=== PATIENT | female | born 1950 | race Caucasian/White ===

== ENCOUNTER → 2017-07-11 | Outpatient (CLI) | payer MEDICARE ==
[~2017-07-11] MED LIST: CARAFATE1 G1 PO; CIPRO250 MG PO; COZAAR50 M1 PO; HUMALOG100 U/ML SC; LANTUS100 U/ML SC; LIPITOR80 MG PO; NEURONTIN100 MG PO; NORVASC5 MG PO; PRILOSEC40 M1 PO; ULTRAM50 MG PO; ZANTAC 150150 MG PO
== END | disposition home or self-care (01) ==
LOC: US 06:22
DX: K76.0 Fatty (change of) liver, not elsewhere classified (principal)

== ENCOUNTER → 2017-10-09 | Outpatient (CLI) | payer MEDICARE | END | disposition home or self-care (01) | LOC: NM 09-15 07:00 | DX: R10.11 Right upper quadrant pain (principal); I10 Essential (primary) hypertension; E11.9 Type 2 diabetes mellitus without complications ==

== ENCOUNTER → 2018-03-29 | Outpatient (CLI) | payer MEDICARE ==
[~2018-03-29] MED LIST changes: +BASAG SOL SC; +LEVOFLOXACIN500 MG PO; +LIPITOR40 MG PO; +METFORMIN ER500 MG PO; +MUCINEX ER600 MG PO; +PREDNISONE10 MG PO; +PREDNISONE20 M1 PO; +TRULICITY1.5 MG/0.5 SC
== END | disposition home or self-care (01) ==
LOC: CT 13:57
DX: J40 Bronchitis, not specified as acute or chronic (principal); R91.1 Solitary pulmonary nodule; R06.02 Shortness of breath; Z90.710 Acquired absence of both cervix and uterus; Z90.89 Acquired absence of other organs

== ENCOUNTER 2018-04-04 19:27 | Inpatient (IN) | payer MEDICARE ==
[~2018-04-04] VITALS: Ht 152.4 cm; Wt 70.5 kg
--- NOTE | ~2018-04-04 | CON ---
[place], [place] REPORT OF CONSULTATION NAME: JIL CALIX [facility] #: [id number] UNIT #: [id number] ROOM: 504 DOCTOR: VERONICA MARTINO MD BIRTHDATE: [birth year] DOS: 04/05/2018 CONSULTATION REQUESTED BY: Hospitalist service. REASON FOR CONSULTATION: For assessment of the symptoms of shortness of breath and cough. HISTORY OF PRESENT ILLNESS: This is a 67-year-old white female patient who has been noted with ongoing symptom for coughing about couple of months. The symptoms have been noted progressive severe inability to cough. The patient has been treated as an outpatient about a month ago with the antibiotic and prednisone. The patient's symptoms had not been noted improving. She came into the Emergency Room where she has been assessed and currently admitted to the hospital for further medical management. She denies symptoms of chest pain with that. Wheezing has been noted intermittently. Tightness in the chest was reported. REVIEW OF SYSTEMS: CONSTITUTIONAL SYMPTOMS: Reported symptoms of fatigue and tiredness. Denies symptoms of fever or chills. EYES: Denies burning, redness, or tenderness. EARS, NOSE, THROAT SYMPTOMS: Denies sore throat, hoarseness, otalgia, postnasal drainage or epistaxis. CARDIOVASCULAR: Denies anginal pain, edema, pain of the lower extremities. GASTROINTESTINAL: Denies dysphagia, nausea, vomiting, diarrhea, abdominal pain, hematemesis, melena, or hematochezia. SKIN: Denies abnormal lesions or rashes. CENTRAL NERVOUS SYSTEM: No dizziness, headache, diplopia, syncopal episodes. Remaining systems were reviewed with the patient, they were noted all negative. PAST MEDICAL HISTORY: The patient was known with: 1. History of type 2 diabetes mellitus. 2. Essential hypertension. 3. Gastroesophageal reflux disease. 4. Moderate obesity. 5. Hyperlipidemia. SOCIAL HISTORY: The patient lives at home. Denies history of alcohol use, illicit drug use. Tobacco use was noted from the age of 20 at a younger age, smoked about a pack of cigarettes per day, discontinued 12 years ago. Denies alcohol use or illicit drugs. FAMILY HISTORY: The patient's father at 67 with the complication of myocardial infarction. Mother at age 70 due to complication of colon cancer. HOME MEDICATIONS: Listed as Norvasc, Lipitor, Cozaar, Prilosec, recent prescription of prednisone completion, Zantac, and Carafate. [place], [place] REPORT OF CONSULTATION NAME: JIL CALIX [facility] #: [id number] UNIT #: [id number] ROOM: [facility] DOCTOR: RAYRAY THOMAS MD,VERONICA BIRTHDATE: [birth year] DRUG ALLERGIES: REPORTED ALLERGY TO PENICILLIN AND ZITHROMAX. MEDICATIONS: Medications which has been used for this at the present time is Solu-Medrol 40 mg b.i.d., famotidine, Lipitor, Norvasc, Mucinex, Lovenox, omeprazole, Carafate, Levaquin, and other p.r.n. medications as well. PHYSICAL EXAMINATION: GENERAL: This is a 67-year-old white female who has been currently noted sitting on the bed without any acute distress this morning of assessment. Height of 5 feet, weight of 155 pounds, BMI 30. VITAL SIGNS: Normal temperature, respiratory rate ranging between 18-20, heart rate 72-104, blood pressure 153/73 to 150/60. The pulse oxygen saturation of the patient recorded as 95% saturation on 3 liters cannula. HEENT: Head was atraumatic. Eyes nonicterus. NECK: Supple. CARDIOVASCULAR: S1, S2 audible. LUNGS: The patient was noted moderate. Decreased breath sounds with expiratory wheezing. No crackles. ABDOMEN: Soft, nontender and obese. EXTREMITIES: No edema. MUSCULOSKELETAL: Without any acute deformities. CENTRAL NERVOUS SYSTEM: The patient's cranial nerves 2-12 intact. MUSCULOSKELETAL: Noted without any gross deformities. VISIBLE SKIN: No lesions or rashes. LABORATORY DATA: The CBC that was done on this admission yesterday, WBC count was noted as 17.4, hemoglobin 11.4, and platelet count 494,000. Lactic acid yesterday was 1.8. The PT/INR was noted as 1.0 yesterday. CMP on admission, BUN 30, creatinine 1.42, glucose 332. CO2 of 20. PT/PTT repeated again this morning normal. CBC this morning, WBC 16.0, platelet count 483,000. CMP this morning, glucose 179, BUN 22, creatinine 1.06. Phosphorus mildly decreased at 2.4. Chest x-ray that was done yesterday PACS images were reviewed and it shows mild pleural thickening on the left side versus pleural fluid was suspected. CT scan of the chest was completed as an outpatient on the of this month was reviewed shows changes of mild centrilobular emphysema was noted. There was no pleural fluid noted on the CT scan of the chest. A 6-mm nodule was noted in the left lower lobe which is not calcified. There was no gross mediastinal lymph node enlargement noted with the lack of the IV contrast does limit the exact assessment. IMPRESSION: 1. The patient noted leukocytosis with ongoing acute exacerbation of chronic obstructive pulmonary disease is likely a reason. The patient has been treated with antibiotics and prednisone for the past 2 months as an outpatient and also seen in the Emergency Room, but failed to respond to treatment, persistent symptoms of coughing, wheezing and shortness of breath. Possibility of resistant infection to be excluded for this patient because of multiple use of antibiotics recently and also mucous impaction resulting in the current ongoing symptoms, nonresolving. 2. A 6-mm nodule was noted at this time in the left lobe at this time with [place], [place] REPORT OF CONSULTATION NAME: JIL CALIX UNIT #: [id number] ROOM: [facility] DOCTOR: VERONICA MARTINO MD BIRTHDATE: [birth year] significance unknown. Assess the followup CT scan of the chest between 3-6 months for further monitoring. 3. The patient with moderate obesity. 4. Steroid-induced hyperglycemia. PLAN OF MANAGEMENT: Bronchoscopy was planned to be done tomorrow morning. Continue current antibiotics, bronchodilators. Monitor leukocytosis. CT scan of the chest between 3-6 months, monitoring of the left lung pulmonary nodule. Continue abstinence of tobacco use. Collect the sputum for Gram stain and culture if the patient is able to expectorate, but she does not have any sputum expectoration, so the sputum culture could not be sent. Additional treatment changes will be made for the patient based on progression of the illness. VERONICA SEO MD CM:CONSTR:REPORT OF CONSULTATION 1136 04/16/18 1047 interface
--- NOTE | ~2018-04-04 | EKG ---
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
--- NOTE | ~2018-04-04 | PR ---
[place], [place] PROGRESS NOTE NAME: JIL CALIX [facility] #: [id number] UNIT #: [id number] ROOM: 504 DOCTOR: RAYRAY THOMAS MD,VERONICA BIRTHDATE: [birth year] DOS: 04/07/2018 SUBJECTIVE: She has been noted comfortable. Bronchoscopy done yesterday and after that she has been noted with marked improvement and reduction in respiratory symptoms including cough, which was noted previously, nonresolving wheezing has improved significantly. Shortness of breath decreased. OBJECTIVE: VITAL SIGNS: Normal temperature, respiratory rate 20, heart rate 78, blood pressure 153/60. The pulse oxygen saturation on room air 100% saturation. HEENT: Examination shows head was atraumatic. Eyes nonicterus. NECK: Supple. CARDIOVASCULAR: S1, S2 audible. LUNGS: Noted occasional wheezing. There were no crackles. ABDOMEN: Soft, nontender. Bowel sounds present. EXTREMITIES: The patient noted without any acute edema. IMPRESSION: The patient who has marked improvement noted in acute exacerbation of bronchial asthma, reduction of the respiratory symptom. Culture of the bronchial washings showed no bacterial growths. PLAN OF TREATMENT: The patient could be discharged home on oral antibiotics and tapering prednisone. Outpatient followup to be scheduled post-discharge by the patient. VERONICA SEO MD CM:PNTRANS [id number] VERONICA THOMAS MD 04/07/181935 interface
--- NOTE | ~2018-04-04 | PROC NOTE ---
[place], [place] PROCEDURE NOTE [facility] [id number] UN[facility] #: [id number] ROOM: 504 DOCTOR: RAYRAY THOMAS MD,VERONICA BIRTHDATE: [birth year] DOS: 04/06/2018 PREOPERATIVE DIAGNOSIS: Persistent severe nonresolving cough with wheezing. POSTOPERATIVE DIAGNOSES: Removal of moderate to large amount of mucus plugs, endobronchial tree bilaterally. Evidence of tracheobronchitis as well. There were no endobronchial obstructive lesions. PROCEDURE DESCRIPTION: Informed consent obtained for the patient. She was brought to the OR and placed in a supine position. Conscious sedation administered by the Anesthesia Department. After achieving proper sedation, airway introduced into the mouth. Bronchoscope advanced to the airway into laryngeal area. Epiglottis and vocal cords were seen. Vocal cords moving symmetrically with movements. Bronchoscope and vocal cord and tracheal lumen. Tracheal lumen shows moderate amount of thick mucus secretion with small purulent secretion suctioned out maddy level. Multiple plugs of the mucus were present in endobronchial tree bilaterally, which was cleared out with normal saline wash. No endobronchial obstructive lesion, or findings of tracheobronchitis were noted. Procedure was tolerated by the patient. Postoperative finding will be discussed with the patient once the patient recovered the effects of acute sedation. No immediate treatment changes will be needed. VERONICA SEO MD CM:PROCNOTE:PROCEDURE NOTE [id number] VERONICA THOMAS MD
--- NOTE | ~2018-04-04 | PR ---
[place], [place] PROGRESS NOTE NAME: JIL CALIX UNIT #: [id number] ROOM: 504 DOCTOR: VERONICA MARTINO MD BIRTHDATE: [birth year] DOS: 04/06/2018 SUBJECTIVE: The patient has been n.p.o. past night for bronchoscopy. He continued to have severe nonproductive cough with intermittent wheezing. Chest tightness reported, there was symptoms of chest pain. Denies symptoms of fever, chills, headache, diplopia, or postnasal drainage. Denies symptoms of abdominal pain, nausea, vomiting or edema of the lower extremities. Remaining systems were reviewed, they were noted all negative. OBJECTIVE: VITAL SIGNS: For the patient normal temperature, respiratory rate of 20, heart rate of 78, blood pressure 165/77-160/62. The pulse oxygen saturation was recorded as 96% on room air. HEENT: Examination shows head was atraumatic. Eyes nonicterus. NECK: Supple. CARDIOVASCULAR: S1, S2 is audible. LUNGS: The patient was noted with expiratory wheezing, no crackles. ABDOMEN: Soft, nontender, bowel sounds present. EXTREMITIES: No acute change. VISIBLE SKIN: No lesions or rashes. CENTRAL NERVOUS SYSTEM: Intact. MUSCULOSKELETAL: Without any acute deformities. LABORATORY DATA: The blood culture from 03/18/2018 for the patient noted no bacterial growth. IMPRESSION: 1. The patient with ongoing severe cough, which has been noted chronic with recent worsening as well. 2. Acute exacerbation of bronchial asthma. 3. Chronic moderate obesity. PLAN OF MANAGEMENT: Proceed with the bronchoscopy as planned. No change in the treatment; otherwise will be necessary. Solitary nodule, which was noted on the CT scan of the chest. The patient required further assessment as an outpatient. Proceed with the bronchoscopy. Any modification treatment can be done after the bronchoscopy. [place], [place] PROGRESS NOTE NAME: JIL CALIX UNIT #: [id number] ROOM: 504 DOCTOR: VERONICA MARTINO MD BIRTHDATE: [birth year] VERONICA SEO MD CM:PNTRANS [id number] VERONICA HTOMAS MD 04/16/18 1048 interface
[~2018-04-04 19:27] MED LIST changes: -BASAG SOL SC; -LEVOFLOXACIN500 MG PO; -LIPITOR40 MG PO; -METFORMIN ER500 MG PO; -MUCINEX ER600 MG PO; -PREDNISONE20 M1 PO; -TRULICITY1.5 MG/0.5 SC
[2018-04-04 19:29] VITALS: BP 153/73
[2018-04-04] MEDS ORDERED: TRULICITY1.5 MG/0.5 SC (19:41)
[2018-04-04 19:59] LABS: BASO % 0.2 % (0.0-1.0); EOS # 0.1 10*3/uL (0.0-0.4); EOS % 0.6 % (1.0-4.0); HEMOGLOBIN 11.4 g/dl (12.0-16.0); LYMPH # 3.1 10*3/uL (1.3-4.4); LYMPH % 17.9 % (27.0-41.0); MEAN CELL VOLUME 82.2 fl (81.0-99.0); MEAN CORPUSCULAR HGB CONC 31.7 g/dl (33.0-37.0); MEAN PLATELET VOLUME 10.7 fl (9.6-12.3); MONO # 1.2 10*3/uL (0.1-1.0); MONO % 7.1 % (3.0-9.0); NEUT # 12.7 10*3/uL (2.3-7.9); PLATELET COUNT AUTOMATED 494 10*3/uL (130-400); RED BLOOD COUNT 4.38 10*6/uL (4.10-5.10); RED CELL DISTRI WIDTH 16.2 % (0-14.5); WHITE BLOOD COUNT 17.4 10*3/uL (4.8-10.8)
[2018-04-04 20:19] LABS: ALBUMIN 2.8 gm/dl (3.1-4.5); ALKALINE PHOSPHATASE 106 U/L (45-117); BUN 30 mg/dl (7-24); CHLORIDE 108 mmol/L (98-107); CREATININE 1.42 mg/dL (0.55-1.02); POTASSIUM 4.6 mmol/L (3.5-5.1); SGOT/AST 16 IU/L (3-35); SGPT/ALT 22 U/L (12-78); SODIUM 138 mmol/L (136-145); TOTAL PROTEIN 7.9 gm/dL (6.4-8.2)
[2018-04-04 20:21] LABS: TROPONIN I < 0.015 ng/ml (<0.045)
[2018-04-04 22:39] VITALS: BP 143/64
[2018-04-05 00:40] VITALS: BP 176/67
--- NOTE | 2018-04-05 00:40 | NUR ---
A 67, admitted to , under the services of MARIO Frazier DO with a diagnosis of SEPSIS, PNEUMONITIS. Chief complaint is HAD BRONCHITIS 1 MONTH AGO IMPROVES WITH PREDNISONE AND THEN GETS SICK AGAIN WHEN DONE WITH STERIOD. C/O SOB NON PRODUCTIVE COUGH. Patient arrived via stretcher from ER. Monitor applied. Initial assessment completed. Vital signs taken and recorded. MARIO FRAZIER DO notified of admission to the unit. Orders received. See assessment for past medical history, medications and allergies. Patient and/or family oriented to unit. [facility]. visitation policy reviewed. Clothing/patient valuable form completed. CHEYANNE WORRELL
[2018-04-05] MEDS ORDERED: METFORMIN ER500 MG PO (01:15)
[2018-04-05] MEDS ORDERED: LIPITOR40 MG PO (01:18)
[2018-04-05] MEDS ORDERED: PREDNISONE20 M1 PO (01:20)
[2018-04-05] MEDS ORDERED: BASAG SOL SC (01:22)
--- NOTE | 2018-04-05 03:39 | NUR ---
CALLED DR. AVERY AND NOTIFIED HIM OF HOME MEDICATIONS BEING RECONCILLED AND THAT NO SOLUMEDROL WAS GIVEN IN ER AFTER VERIFY THIS WITH THE GRAIN WEIGHER. OK TO GIVEN SOLUMEDROL NOW PER DR. AVERY.
--- NOTE | 2018-04-05 06:57 | NUR ---
DR. SEO HERE AND SPOKE WITH PATIENT AND WANTS TO HAVE PT. SCHEDULED FOR BRONCHOSCOPY FOR TOMORROW AM.
[2018-04-05 07:58] LABS: HEMATOCRIT 39.7 % (37.0-47.0); HEMOGLOBIN 12.4 g/dl (12.0-16.0); MEAN CELL VOLUME 82.5 fl (81.0-99.0); MEAN CORPUSCULAR HGB 25.8 pg (27.0-31.0); MEAN CORPUSCULAR HGB CONC 31.2 g/dl (33.0-37.0); MEAN PLATELET VOLUME 10.9 fl (9.6-12.3); PLATELET COUNT AUTOMATED 483 10*3/uL (130-400); RED BLOOD COUNT 4.81 10*6/uL (4.10-5.10); RED CELL DISTRI WIDTH 16.3 % (0-14.5)
[2018-04-05 08:00] VITALS: BP 150/60
[2018-04-05 08:09] LABS: ACT PARTIAL THROMBO TIME 21.7 SECONDS (20.8-31.5)
[2018-04-05 08:16] LABS: TOTAL CELLS COUNTED 100 #CELLS
[2018-04-05 08:17] LABS: PLATELET SUFFICIENCY HIGH (NORMAL)
[2018-04-05 08:20] LABS: ALBUMIN 2.9 gm/dl (3.1-4.5); BUN 22 mg/dl (7-24); CHLORIDE 108 mmol/L (98-107); CHOLESTEROL 208 mg/dL (<200); CREATININE 1.06 mg/dL (0.55-1.02); PHOSPHOROUS 2.4 mg/dL (2.5-4.9); SGOT/AST 6 IU/L (3-35); SGPT/ALT 19 U/L (12-78); SODIUM 140 mmol/L (136-145); TRIGLYCERIDES 138 mg/dl (<150); VLDL CHOLESTEROL 28 mg/dL (6-40)
[2018-04-05 08:28] LABS: ALKALINE PHOSPHATASE 104 U/L (45-117); FREE T4 0.86 ng/dl (0.76-1.46); HDL CHOLESTEROL 53 mg/dl (40-60); LDL CHOLESTEROL 127 mg/dL (9-159); TOTAL PROTEIN 8.3 gm/dL (6.4-8.2)
[2018-04-05 08:34] LABS: POTASSIUM 3.6 mmol/L (3.5-5.1)
--- NOTE | 2018-04-05 08:41 | NUR ---
PT RESTING IN BED. NO DISTRESS NOTED./ SEE SHIFT ASSESSMENT. WILL MONITOR
--- NOTE | 2018-04-05 09:00 | NUR ---
Correspondence Representative in to talk to patient. Patient states lives at home with family. There are few steps in the home. Physician: piter Pharmacy: [facility] Home health services: none Patient's level of ADLs: INDEPENDENT Patient has working utilities: all working DME: none Follow-up physician's appointment after d/c: will be made by hospitalist nurse director upon discharge Does patient want to access PORTAL?: no Discharge plan disucussed with patient, patient lives at home, is independent in adls and ambulation, works, drives, patient states she will be going back home when able and denies any home needs. JORGE L MILAN
[2018-04-05 09:20] LABS: VITAMIN D, 25-HYDROXY 13.1 ng/mL (30-100)
[2018-04-05 12:00] VITALS: BP 145/50
[2018-04-05 16:00] VITALS: BP 129/66
[2018-04-05 20:00] VITALS: BP 129/45
--- NOTE | 2018-04-05 20:28 | NUR ---
24 HR chart check completed.
--- NOTE | 2018-04-05 21:00 | NUR ---
AWAKE, RESTING IN BED WITH NO ACUTE DISTRESS NOTED. RESPIRATIONS EASY. LUNGS DIMINISHED WITH WHEEZES. PULSE OX 99% RA. CLAIMS NON-PROD COUGH; AWARE OF NEED FOR SPUTUM SPECIMEN, CUP PRESENT AT BEDSIDE. IV FLUIDS INFUSING PER ORDER. CALL LIGHT WITHIN REACH. NO VOICED COMPLAINTS.
[2018-04-06] VITALS (9 sets, daily range): BP systolic 136–195; BP diastolic 43–134
--- NOTE | 2018-04-06 | NUR ---
RESTING IN BED. NO ACUTE DISTRESS NOTED. RESPIRATIONS EASY. VSS. NPO STATUS DISCUSSED FOR BRONCH IN AM, PATIENT VOICES UNDERSTANDING. IV FLUIDS INFUSING PER ORDER. CALL LIGHT WITHIN REACH. NO VOICED COMPLAINTS
--- NOTE | 2018-04-06 06:00 | NUR ---
SLEPT THROUGHOUT NIGHT WITH NO DISTRESS NOTED. RESPIRATIONS EASY. NPO STATUS MAINTAINED FOR BRONCH THIS AM. IV FLUIDS MAINTAINED. CALL LIGHT WITHIN REACH. NO VOICED COMPLAINTS THIS SHIFT
--- NOTE | 2018-04-06 08:17 | NUR ---
PT RESTING IN BED. NO DISTRESS NOTED. WILL MONITOR NO VOICED C/O
--- NOTE | 2018-04-06 09:00 | NUR ---
case management attempted to visit with patient. patient was out of the room for a procedure, will see at a later time regarding any discharge need
--- NOTE | 2018-04-06 19:45 | NUR ---
PT RESTING IN BED WITH HOB ELEVATED. RESP-EASY AND REGULAR. IVF INFUSING WITH NO PROBLEM. NO C/O AT THIS TIME. CALL LIGHT IN REACH.
--- NOTE | 2018-04-06 21:15 | NUR ---
TOLERATED ROUTINE MED WITH NO PROBLEM. BSG-421, SEE EMAR. CALL LIGHT IN REACH.
[2018-04-07] VITALS: BP 160/51
--- NOTE | 2018-04-07 00:20 | NUR ---
AMBULATORY TO BATHROOM AND BACK TO BED. C/O HEARTBURN, REQUESTING CARAFATE, STATES THIS HELPS. MEDICATED WITH CARAFATE PER PRN ORDER, SEE EMAR. CALL LIGHT IN REACH. SEE SHIFT ASSESSMENT.
--- NOTE | 2018-04-07 01:15 | NUR ---
RESTING IN BED WITH EYES CLOSED. MEDICATION SEEMS TO BE EFFECTIVE. CALL LIGHT IN REACH.
--- NOTE | 2018-04-07 04:00 | NUR ---
RESTING IN BED ON RIGHT SIDE. RESP-EASY AND REGULAR. CALL LIGHT IN REACH.
--- NOTE | 2018-04-07 05:50 | NUR ---
TOLERATED ROUTINE MED WITH NO PROBLEM. BSG-202, SEE EMAR. IVF INFUSING WITH NO PROBLEM. CALL LIGHT IN REACH.
[2018-04-07 08:00] VITALS: BP 153/60
[2018-04-07] MEDS ORDERED: LEVOFLOXACIN500 MG PO (10:08)
[2018-04-07] MEDS ORDERED: MUCINEX ER600 MG PO (10:09)
[2018-04-07] MEDS ORDERED: PREDNISONE10 MG PO (10:09)
--- NOTE | 2018-04-07 12:02 | NUR ---
Discharge instructions reviewed with patient. Patient receptive and verbalizes understanding. Follow-up care TO BE arranged BY PATIENT. Written instructions given to patient. IV CATH REMOVED FROM [facility]. RAYSA NIEVES
[2018-04-07 14:06] LABS: ACID FAST SPEC PROCESSING Concentration (.)
[2018-04-19 13:09] LABS: ORGANISM ID, MOLD Final report (.); RESULT 1 Penicillium species (.)
[2018-05-03 18:05] LABS: ACID FAST CULTURE Positive (.); M GORDONAE Not Indicated (.); M KANSASII Not Indicated (.); M TUBERCULOSIS COMPLEX Negative (.)
[2018-05-07 09:44] LABS: M AVIUM COMPLEX Positive (.)
== END 2018-04-07 12:02 | disposition home or self-care (01) | DRG 871 ==
LOC: ED 19:27 → 5E 21:12 → EDHOLD 21:12 → 5E 23:55
PROVIDERS: Family Medicine; Internal Medicine Critical Care Medicine; Physician Assistant; ADMIT Internal Medicine
PROC: 0BC18ZZ Extirpation of Matter from Trachea, Via Natural or Artificial Opening Endoscopic (ICD-10-PCS; principal; 2018-04-06)
PROC: 0BC48ZZ Extirpation of Matter from Right Upper Lobe Bronchus, Via Natural or Artificial Opening Endoscopic (ICD-10-PCS; principal; 2018-04-06)
PROC: 0BC38ZZ Extirpation of Matter from Right Main Bronchus, Via Natural or Artificial Opening Endoscopic (ICD-10-PCS; principal; 2018-04-06)
PROC: 0BC78ZZ Extirpation of Matter from Left Main Bronchus, Via Natural or Artificial Opening Endoscopic (ICD-10-PCS; principal; 2018-04-06)
PROC: 0BC98ZZ Extirpation of Matter from Lingula Bronchus, Via Natural or Artificial Opening Endoscopic (ICD-10-PCS; principal; 2018-04-06)
PROC: 0BCB8ZZ Extirpation of Matter from Left Lower Lobe Bronchus, Via Natural or Artificial Opening Endoscopic (ICD-10-PCS; principal; 2018-04-06)
PROC: 0BC88ZZ Extirpation of Matter from Left Upper Lobe Bronchus, Via Natural or Artificial Opening Endoscopic (ICD-10-PCS; principal; 2018-04-06)
PROC: 0BC58ZZ Extirpation of Matter from Right Middle Lobe Bronchus, Via Natural or Artificial Opening Endoscopic (ICD-10-PCS; principal; 2018-04-06)
PROC: 0BC68ZZ Extirpation of Matter from Right Lower Lobe Bronchus, Via Natural or Artificial Opening Endoscopic (ICD-10-PCS; principal; 2018-04-06)
DX: A41.9 Sepsis, unspecified organism (principal); J18.9 Pneumonia, unspecified organism; N17.0 Acute kidney failure with tubular necrosis; E43 Unspecified severe protein-calorie malnutrition; J45.901 Unspecified asthma with (acute) exacerbation; J44.1 Chronic obstructive pulmonary disease with (acute) exacerbation; T17.590A Other foreign object in bronchus causing asphyxiation, initial encounter; J44.0 Chronic obstructive pulmonary disease with (acute) lower respiratory infection; E66.8 Other obesity; E78.5 Hyperlipidemia, unspecified; R65.20 Severe sepsis without septic shock; J20.9 Acute bronchitis, unspecified; D64.9 Anemia, unspecified; T38.0X5A Adverse effect of glucocorticoids and synthetic analogues, initial encounter; D47.3 Essential (hemorrhagic) thrombocythemia; E87.8 Other disorders of electrolyte and fluid balance, not elsewhere classified; E11.65 Type 2 diabetes mellitus with hyperglycemia; E83.41 Hypermagnesemia; X58.XXXA Exposure to other specified factors, initial encounter; I10 Essential (primary) hypertension; K21.9 Gastro-esophageal reflux disease without esophagitis; Z88.0 Allergy status to penicillin; Z88.1 Allergy status to other antibiotic agents; Z79.4 Long term (current) use of insulin; Z79.899 Other long term (current) drug therapy; Z90.710 Acquired absence of both cervix and uterus; Z98.51 Tubal ligation status; Z82.3 Family history of stroke; Z82.49 Family history of ischemic heart disease and other diseases of the circulatory system; Z80.0 Family history of malignant neoplasm of digestive organs; Z87.891 Personal history of nicotine dependence; Z79.84 Long term (current) use of oral hypoglycemic drugs; Y92.89 Other specified places as the place of occurrence of the external cause; Y93.89 Activity, other specified; Y99.8 Other external cause status; Z68.30 Body mass index [BMI] 30.0-30.9, adult

== ENCOUNTER → 2018-05-01 | Outpatient (CLI) | payer MEDICARE ==
[~2018-05-01] MED LIST changes: +BASAG SOL SC; +LEVOFLOXACIN500 MG PO; +LIPITOR40 MG PO; +METFORMIN ER500 MG PO; +MUCINEX ER600 MG PO; +PREDNISONE20 M1 PO; +TRULICITY1.5 MG/0.5 SC
[2018-05-01 14:33] LABS: BASO % 0.2 % (0.0-1.0); EOS # 0.2 10*3/uL (0.0-0.4); EOS % 1.8 % (1.0-4.0); HEMATOCRIT 32.4 % (37.0-47.0); HEMOGLOBIN 10.1 g/dl (12.0-16.0); LYMPH # 1.5 10*3/uL (1.3-4.4); MEAN CELL VOLUME 83.3 fl (81.0-99.0); MEAN CORPUSCULAR HGB CONC 31.2 g/dl (33.0-37.0); MEAN PLATELET VOLUME 10.2 fl (9.6-12.3); MONO # 0.6 10*3/uL (0.1-1.0); MONO % 5.5 % (3.0-9.0); NEUT # 8.8 10*3/uL (2.3-7.9); NEUT % 79.1 % (47.0-73.0); PLATELET COUNT AUTOMATED 276 10*3/uL (130-400); RED BLOOD COUNT 3.89 10*6/uL (4.10-5.10); RED CELL DISTRI WIDTH 17.2 % (0-14.5); WHITE BLOOD COUNT 11.2 10*3/uL (4.8-10.8)
== END | disposition home or self-care (01) ==
LOC: LAB 14:03
PROVIDERS: Internal Medicine Critical Care Medicine
DX: Z79.899 Other long term (current) drug therapy (principal)

== ENCOUNTER → 2018-05-14 | Outpatient (CLI) | payer MEDICARE ==
[2018-05-14 15:53] LABS: BASO # 0.1 10*3/uL (0.0-0.1); BASO % 0.3 % (0.0-1.0); EOS # 0.1 10*3/uL (0.0-0.4); EOS % 0.3 % (1.0-4.0); HEMATOCRIT 36.5 % (37.0-47.0); HEMOGLOBIN 11.2 g/dl (12.0-16.0); LYMPH # 2.4 10*3/uL (1.3-4.4); LYMPH % 13.2 % (27.0-41.0); MEAN CELL VOLUME 84.1 fl (81.0-99.0); MEAN CORPUSCULAR HGB 25.8 pg (27.0-31.0); MEAN CORPUSCULAR HGB CONC 30.7 g/dl (33.0-37.0); MEAN PLATELET VOLUME 10.4 fl (9.6-12.3); MONO # 0.9 10*3/uL (0.1-1.0); MONO % 5.2 % (3.0-9.0); NEUT # 14.4 10*3/uL (2.3-7.9); NEUT % 80.2 % (47.0-73.0); PLATELET COUNT AUTOMATED 384 10*3/uL (130-400); RED BLOOD COUNT 4.34 10*6/uL (4.10-5.10)
[2018-05-14 16:14] LABS: IRON 63 ug/dL (50-170); TOTAL IRON BINDING CAPACITY 276 ug/dl (250-450)
[2018-05-14 16:51] LABS: FERRITIN 16.1 ng/mL (10.0-291.0)
== END | disposition home or self-care (01) ==
LOC: LAB 15:24
PROVIDERS: Family Medicine
DX: D64.9 Anemia, unspecified (principal)

== ENCOUNTER 2018-12-29 15:48 | Emergency (ER) | payer MEDICARE, OTHER ==
[~2018-12-29] VITALS: Ht 152.4 cm; Wt 74.4 kg
--- NOTE | ~2018-12-29 | EKG ---
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
[2018-12-29 16:43] LABS: BASO % 0.2 % (0.0-1.0); EOS # 0.2 10*3/uL (0.0-0.4); HEMATOCRIT 35.1 % (37.0-47.0); HEMOGLOBIN 10.5 g/dl (12.0-16.0); LYMPH # 1.4 10*3/uL (1.3-4.4); LYMPH % 23.1 % (27.0-41.0); MEAN CELL VOLUME 85.6 fl (81.0-99.0); MEAN CORPUSCULAR HGB 25.6 pg (27.0-31.0); MEAN CORPUSCULAR HGB CONC 29.9 g/dl (33.0-37.0); MONO # 0.6 10*3/uL (0.1-1.0); MONO % 9.3 % (3.0-9.0); NEUT # 3.7 10*3/uL (2.3-7.9); NEUT % 63.1 % (47.0-73.0); PLATELET COUNT AUTOMATED 250 10*3/uL (130-400); RED CELL DISTRI WIDTH 16.2 % (0-14.5); WHITE BLOOD COUNT 5.9 10*3/uL (4.8-10.8)
[2018-12-29 16:51] LABS: ACT PARTIAL THROMBO TIME 26.3 SECONDS (20.0-32.1)
[2018-12-29 16:59] LABS: BILIRUBIN NEGATIVE (NEGATIVE); BLOOD NEGATIVE (NEGATIVE); CLARITY CLEAR (CLEAR); COLOR YELLOW (YELLOW); GLUCOSE NEGATIVE (NEGATIVE); KETONE NEGATIVE (NEGATIVE); LEUKO ESTERASE NEGATIVE (NEGATIVE); NITRITE NEGATIVE (NEGATIVE); SPECIFIC GRAVITY 1.025 (1.005-1.030); UROBILINOGEN 0.2 E.U./dl (0.2-1.0)
[2018-12-29 17:01] LABS: ALBUMIN 2.8 gm/dl (3.1-4.5); ALKALINE PHOSPHATASE 91 U/L (45-117); BUN 24 mg/dl (7-24); CHLORIDE 109 mmol/L (98-107); CREATININE 1.25 mg/dL (0.55-1.02); LIPASE 235 U/L (73-393); POTASSIUM 4.1 mmol/L (3.5-5.1); SGOT/AST 16 IU/L (3-35); SGPT/ALT 25 U/L (12-78); SODIUM 136 mmol/L (136-145); TOTAL PROTEIN 7.8 gm/dL (6.4-8.2); TROPONIN I < 0.015 ng/ml (<0.045)
[2018-12-29 17:06] LABS: BACTERIA 1+
== END 2018-12-29 20:48 | disposition home or self-care (01) ==
LOC: ED 15:48
PROVIDERS: Physician Assistant
DX: K52.9 Noninfective gastroenteritis and colitis, unspecified (principal); R09.1 Pleurisy; M25.511 Pain in right shoulder; R79.1 Abnormal coagulation profile; I10 Essential (primary) hypertension; E11.9 Type 2 diabetes mellitus without complications; Z88.0 Allergy status to penicillin; Z88.1 Allergy status to other antibiotic agents; Z79.899 Other long term (current) drug therapy; Z79.4 Long term (current) use of insulin; Z87.891 Personal history of nicotine dependence

== ENCOUNTER 2019-01-23 18:27 | Inpatient (IN) | payer MEDICARE, OTHER ==
[~2019-01-23] VITALS: Ht 152.4 cm; Wt 74.4 kg
[2019-01-23 18:30] VITALS: BP 158/77
[2019-01-23 19:12] LABS: BASO # 0.1 10*3/uL (0.0-0.1); BASO % 0.7 % (0.0-1.0); EOS # 0.2 10*3/uL (0.0-0.4); HEMATOCRIT 32.1 % (37.0-47.0); HEMOGLOBIN 9.9 g/dl (12.0-16.0); LYMPH # 1.3 10*3/uL (1.3-4.4); LYMPH % 8.7 % (27.0-41.0); MEAN CELL VOLUME 83.4 fl (81.0-99.0); MEAN CORPUSCULAR HGB 25.7 pg (27.0-31.0); MEAN CORPUSCULAR HGB CONC 30.8 g/dl (33.0-37.0); MEAN PLATELET VOLUME 10.9 fl (9.6-12.3); MONO # 0.9 10*3/uL (0.1-1.0); MONO % 5.6 % (3.0-9.0); NEUT # 12.8 10*3/uL (2.3-7.9); NEUT % 83.7 % (47.0-73.0); PLATELET COUNT AUTOMATED 296 10*3/uL (130-400); RED BLOOD COUNT 3.85 10*6/uL (4.10-5.10); RED CELL DISTRI WIDTH 15.4 % (0-14.5); WHITE BLOOD COUNT 15.3 10*3/uL (4.8-10.8)
[2019-01-23 19:23] LABS: ACT PARTIAL THROMBO TIME 24.8 SECONDS (20.0-32.1); INTERNATIONAL NORM RATIO 0.9 (2.0-3.5)
[2019-01-23 19:29] LABS: ALBUMIN 3.3 gm/dl (3.1-4.5); ALKALINE PHOSPHATASE 88 U/L (45-117); BUN 14 mg/dl (7-24); CHLORIDE 111 mmol/L (98-107); CREATININE 1.13 mg/dL (0.55-1.02); SGOT/AST 14 IU/L (3-35); SGPT/ALT 25 U/L (12-78); SODIUM 139 mmol/L (136-145); TOTAL PROTEIN 7.9 gm/dL (6.4-8.2)
[2019-01-23 19:39] LABS: TROPONIN I < 0.015 ng/ml (<0.045)
[2019-01-23 20:02] LABS: BILIRUBIN NEGATIVE (NEGATIVE); BLOOD NEGATIVE (NEGATIVE); CLARITY CLEAR (CLEAR); COLOR YELLOW (YELLOW); GLUCOSE NEGATIVE (NEGATIVE); KETONE NEGATIVE (NEGATIVE); LEUKO ESTERASE NEGATIVE (NEGATIVE); NITRITE NEGATIVE (NEGATIVE); UROBILINOGEN 0.2 E.U./dl (0.2-1.0)
[2019-01-23 20:14] LABS: BACTERIA 2+; RBC 0-2 rbc/hpf (0-2)
[2019-01-23 20:56] VITALS: BP 122/64
[2019-01-23 21:30] VITALS: BP 139/56
--- NOTE | 2019-01-23 21:30 | NUR ---
A 68, admitted to , under the services of JUAN Sanchez DO with a diagnosis of SEPSIS, PNEUMONITIS. Chief complaint is SHORTNESS OF BREATH,COUGH OFF/ON X 1 MONTH. Patient arrived via stretcher from ER. Monitor applied. Initial assessment completed. Vital signs taken and recorded. JUAN SANCHEZ DO notified of admission to the unit. Orders received. See assessment for past medical history, medications and allergies. Patient and/or family oriented to unit. [facility] visitation policy reviewed. Clothing/patient valuable form completed. ERICK HARDING
[2019-01-24] VITALS: BP 155/55
--- NOTE | 2019-01-24 06:24 | NUR ---
SPOKE WITH DR. FLORIAN REGARDING CONSULT ORDER.
[2019-01-24 06:45] LABS: HEMATOCRIT 28.3 % (37.0-47.0); HEMOGLOBIN 8.5 g/dl (12.0-16.0); MEAN CELL VOLUME 84.2 fl (81.0-99.0); MEAN CORPUSCULAR HGB 25.3 pg (27.0-31.0); MEAN PLATELET VOLUME 11.4 fl (9.6-12.3); PLATELET COUNT AUTOMATED 246 10*3/uL (130-400); RED BLOOD COUNT 3.36 10*6/uL (4.10-5.10); RED CELL DISTRI WIDTH 15.6 % (0-14.5); WHITE BLOOD COUNT 12.5 10*3/uL (4.8-10.8)
[2019-01-24 07:14] LABS: CREATININE 1.16 mg/dL (0.55-1.02); PHOSPHOROUS 1.6 mg/dL (2.5-4.9); POTASSIUM 3.9 mmol/L (3.5-5.1)
[2019-01-24 07:42] LABS: TOTAL CELLS COUNTED 100 #CELLS
[2019-01-24 07:43] LABS: PLATELET SUFFICIENCY NORMAL (NORMAL)
[2019-01-24 08:00] VITALS: BP 158/50
[2019-01-24 08:35] LABS: VITAMIN D, 25-HYDROXY 16.3 ng/mL (30-100)
[2019-01-24 08:36] LABS: FERRITIN 18.9 ng/mL (10.0-291.0)
[2019-01-24 12:00] VITALS: BP 144/46
--- NOTE | 2019-01-24 12:41 | NUR ---
[employer] in to talk to patient. Patient states lives at home with family. There are few steps in the home. Physician: paula Pharmacy: [facility] Home health services: none Patient's level of ADLs: INDEPENDENT Patient has working utilities: all working DME: none Follow-up physician's appointment after d/c: will be made by hospitalist nurse director upon discharge Does patient want to access PORTAL?: no Discharge plan discussed with patient, she lives at home with family, is independent in adls and ambulation, works, drives, she will return home when medically stable and denies any home needs. JORGE L MILAN
[2019-01-24 16:00] VITALS: BP 164/44
[2019-01-24 20:00] VITALS: BP 163/54
--- NOTE | 2019-01-24 22:22 | NUR ---
JOCELYN NOLASCO GIVEN AT PATIENT REQUEST FOR C/O COUGH. SEE EMAR. REINFORCED USE OF CALL LIGHT.
--- NOTE | 2019-01-24 22:30 | NUR ---
NOTIFIED OF BLOOD SUGAR RESULTS OF 272/252. COVERAGE PROVIDED PER S/S. SEE EMAR.
--- NOTE | 2019-01-24 22:30 | NUR ---
DR. TINOCO NOTIFIED OF BLOOD SUGARS OF 372/352. COVERAGE GIVEN PER S/S.
--- NOTE | 2019-01-24 23:46 | NUR ---
24 HR chart check completed.
[2019-01-25] VITALS (8 sets, daily range): BP systolic 118–146; BP diastolic 44–74
--- NOTE | 2019-01-25 06:15 | NUR ---
SPOKE WITH REGARDING INSUIN COVERAGE. BS 279. ONLY HALF COVERAGE PER S/S GIVEN D/T PATIENT BEING NPO FOR PROCEDURE. CALLED SURGERY SPOKE TO MEE MADE AWARE OF BLOOD SUGAR AND 5 UNITS COVERAGE GIVEN.
--- NOTE | 2019-01-25 09:00 | NUR ---
case management visits with patient, she states she will return home when medically stable, discussed with her VNA and she declines any home needs, she states she will return to work when medically stable
[2019-01-25 11:24] LABS: BF LYMPHOCYTES 1 %; BF MACROPHAGES 56 %; BF NEUTROPHILS 43 %
--- NOTE | 2019-01-25 14:00 | NUR ---
PT RESTING IN BED, NO DISTRESS NOTED. RESPIRATIONS EASY AND REGULAR, NO COMPLAINTS OF COUGH AT THIS TIME.
[2019-01-26] VITALS: BP 143/59
[2019-01-26] MEDS ORDERED: PREDNISONE10 MG PO (09:59)
[2019-01-26] MEDS ORDERED: LEVAQUIN500 M2 PO (09:59)
--- NOTE | 2019-01-26 11:45 | NUR ---
Discharge instructions reviewed with patient/family. Patient receptive and verbalizes understanding. Follow-up care arranged. Written instructions given to patient/family. IV and front desk monitor removed. PEGGY RICE
[2019-01-26 18:11] LABS: ACID FAST SPEC PROCESSING Concentration (.)
== END 2019-01-26 11:38 | disposition home or self-care (01) | DRG 871 ==
LOC: ED 18:27 → EDHOLD 19:53 → 5E 19:53
PROVIDERS: Internal Medicine; Internal Medicine Critical Care Medicine; Physician Assistant; ADMIT Internal Medicine
PROC: 0BC68ZZ Extirpation of Matter from Right Lower Lobe Bronchus, Via Natural or Artificial Opening Endoscopic (ICD-10-PCS; principal; 2019-01-23)
PROC: 0BC88ZZ Extirpation of Matter from Left Upper Lobe Bronchus, Via Natural or Artificial Opening Endoscopic (ICD-10-PCS; principal; 2019-01-23)
PROC: 0BC98ZZ Extirpation of Matter from Lingula Bronchus, Via Natural or Artificial Opening Endoscopic (ICD-10-PCS; principal; 2019-01-23)
PROC: 0BC18ZZ Extirpation of Matter from Trachea, Via Natural or Artificial Opening Endoscopic (ICD-10-PCS; principal; 2019-01-23)
PROC: 0BDF8ZX Extraction of Right Lower Lung Lobe, Via Natural or Artificial Opening Endoscopic, Diagnostic (ICD-10-PCS; principal; 2019-01-23)
PROC: 0BC78ZZ Extirpation of Matter from Left Main Bronchus, Via Natural or Artificial Opening Endoscopic (ICD-10-PCS; principal; 2019-01-23)
PROC: 0BC48ZZ Extirpation of Matter from Right Upper Lobe Bronchus, Via Natural or Artificial Opening Endoscopic (ICD-10-PCS; principal; 2019-01-23)
PROC: 0BC58ZZ Extirpation of Matter from Right Middle Lobe Bronchus, Via Natural or Artificial Opening Endoscopic (ICD-10-PCS; principal; 2019-01-23)
PROC: 0BCB8ZZ Extirpation of Matter from Left Lower Lobe Bronchus, Via Natural or Artificial Opening Endoscopic (ICD-10-PCS; principal; 2019-01-23)
PROC: 0BC38ZZ Extirpation of Matter from Right Main Bronchus, Via Natural or Artificial Opening Endoscopic (ICD-10-PCS; principal; 2019-01-23)
DX: A41.9 Sepsis, unspecified organism (principal); J18.9 Pneumonia, unspecified organism; J45.901 Unspecified asthma with (acute) exacerbation; K21.9 Gastro-esophageal reflux disease without esophagitis; E78.5 Hyperlipidemia, unspecified; E66.9 Obesity, unspecified; R65.20 Severe sepsis without septic shock; D64.9 Anemia, unspecified; E11.65 Type 2 diabetes mellitus with hyperglycemia; N18.3 Chronic kidney disease, stage 3 (moderate); I12.9 Hypertensive chronic kidney disease with stage 1 through stage 4 chronic kidney disease, or unspecified chronic kidney disease; E11.22 Type 2 diabetes mellitus with diabetic chronic kidney disease; J20.9 Acute bronchitis, unspecified; Z87.01 Personal history of pneumonia (recurrent); Z88.0 Allergy status to penicillin; Z88.8 Allergy status to other drugs, medicaments and biological substances; Z79.899 Other long term (current) drug therapy; Z79.84 Long term (current) use of oral hypoglycemic drugs; Z79.4 Long term (current) use of insulin; Z90.710 Acquired absence of both cervix and uterus; Z98.51 Tubal ligation status; Z87.891 Personal history of nicotine dependence; Z82.49 Family history of ischemic heart disease and other diseases of the circulatory system; Z82.3 Family history of stroke; Z80.0 Family history of malignant neoplasm of digestive organs; Z68.32 Body mass index [BMI] 32.0-32.9, adult

== ENCOUNTER → 2020-07-02 | Outpatient (CLI) | payer MEDICARE, OTHER ==
[~2020-07-02] MED LIST changes: +LEVAQUIN500 M2 PO
== END | disposition home or self-care (01) ==
LOC: CT 07:50
PROVIDERS: ATTEND Nurse Practitioner Acute Care
DX: R91.8 Other nonspecific abnormal finding of lung field (principal); K44.9 Diaphragmatic hernia without obstruction or gangrene

== ENCOUNTER → 2021-09-22 | Outpatient (CLI) | payer MEDICARE, OTHER | LOC: LAB 09:49 | PROVIDERS: ATTEND Family Medicine | DX: M77.8 Other enthesopathies, not elsewhere classified (principal); E55.9 Vitamin D deficiency, unspecified ==

== ENCOUNTER → 2023-08-30 | Outpatient (CLI) | payer MEDICARE, OTHER | END | disposition home or self-care (01) | LOC: MAMMO 08-01 13:30 | PROVIDERS: ATTEND Nurse Practitioner Family | DX: Z12.31 Encounter for screening mammogram for malignant neoplasm of breast (principal); N63.11 Unspecified lump in the right breast, upper outer quadrant; N63.23 Unspecified lump in the left breast, lower outer quadrant; I10 Essential (primary) hypertension; Z86.39 Personal history of other endocrine, nutritional and metabolic disease; Z79.4 Long term (current) use of insulin ==

== ENCOUNTER → 2023-09-28 | Outpatient (CLI) | payer MEDICARE, OTHER | END | disposition home or self-care (01) | LOC: MAMMO 09-21 13:30 → US 09-21 14:00 → MAMMO 01:54 | PROVIDERS: ATTEND Nurse Practitioner Family | DX: N63.13 Unspecified lump in the right breast, lower outer quadrant (principal); N60.02 Solitary cyst of left breast; N60.01 Solitary cyst of right breast; R92.8 Other abnormal and inconclusive findings on diagnostic imaging of breast ==

== ENCOUNTER → 2024-02-29 | Outpatient (CLI) | payer MEDICARE, OTHER | END | disposition home or self-care (01) | LOC: RAD 16:52 | PROVIDERS: ATTEND Nurse Practitioner Family | DX: R05.1 Acute cough (principal); M47.814 Spondylosis without myelopathy or radiculopathy, thoracic region ==

== ENCOUNTER 2024-04-08 11:51 | Emergency (ER) | payer MEDICARE, OTHER ==
[~2024-04-08] VITALS: Ht 154.9 cm; Wt 70.8 kg
[2024-04-08] MEDS ORDERED: LANTUS100 UNIT/1 SC (12:20)
[2024-04-08] MEDS ORDERED: NOVOLOG FL100 UNIT/2 SC (12:21)
[2024-04-08] MEDS ORDERED: ALBUTEROL SULFATE HF (12:22)
[2024-04-08 14:17] LABS: BASO % 0.7 % (0.0-1.0); EOS # 0.1 10*3/uL (0.0-0.4); EOS % 0.8 % (1.0-4.0); HEMATOCRIT 32.8 % (37.0-47.0); MEAN CELL VOLUME 77.9 fl (81.0-99.0); MEAN CORPUSCULAR HGB CONC 29.6 g/dl (33.0-37.0); MEAN PLATELET VOLUME 10.6 fl (9.6-12.3); MONO # 0.7 10*3/uL (0.1-1.0); MONO % 10.7 % (3.0-9.0); NEUT # 4.3 10*3/uL (2.3-7.9); NEUT % 71.4 % (47.0-73.0); PLATELET COUNT AUTOMATED 265 10*3/uL (130-400); RED BLOOD COUNT 4.21 10*6/uL (4.10-5.10); RED CELL DISTRI WIDTH 17.3 % (0-14.5); WHITE BLOOD COUNT 6.1 10*3/uL (4.8-10.8)
[2024-04-08 14:43] LABS: ALKALINE PHOSPHATASE 87 U/L (46-116); BUN 23 mg/dl (9-23); CHLORIDE 103 mmol/L (98-107); LIPASE 49 U/L (12-53); POTASSIUM 3.7 mmol/L (3.4-5.1); SGPT/ALT 19 U/L (5-49); TOTAL PROTEIN 8.2 gm/dL (6.0-8.0)
[2024-04-08 15:12] LABS: BILIRUBIN Negative (Negative); BLOOD Trace-Lysed (Negative); CLARITY Clear (Clear); COLOR Yellow (Yellow); GLUCOSE 3+ (Negative); KETONE Trace (Negative); LEUKO ESTERASE Negative (Negative); NITRITE Negative (Negative); PH 5.5 (4.5-8.0); UROBILINOGEN 0.2 E.U./dl (0.0-1.0)
[2024-04-08 15:24] LABS: BACTERIA TRACE; MUCOUS 1+; WBC 0-2 wbc/hpf (0-5)
[2024-04-08] MEDS ORDERED: Ondansetron4 MG PO ×2 (17:41→17:50)
== END 2024-04-08 17:42 | disposition home or self-care (01) ==
LOC: ED 11:51
PROVIDERS: Internal Medicine
DX: R11.2 Nausea with vomiting, unspecified (principal); E11.65 Type 2 diabetes mellitus with hyperglycemia; R19.7 Diarrhea, unspecified; T38.3X5A Adverse effect of insulin and oral hypoglycemic [antidiabetic] drugs, initial encounter; Z20.822 Contact with and (suspected) exposure to COVID-19; I10 Essential (primary) hypertension; K21.9 Gastro-esophageal reflux disease without esophagitis; Z88.0 Allergy status to penicillin; Z88.1 Allergy status to other antibiotic agents; Z90.710 Acquired absence of both cervix and uterus; Z95.5 Presence of coronary angioplasty implant and graft; Z98.890 Other specified postprocedural states; Z90.49 Acquired absence of other specified parts of digestive tract; Z87.891 Personal history of nicotine dependence; Y92.89 Other specified places as the place of occurrence of the external cause